=== PATIENT | female | born 1930 | race Caucasian/White ===

== ENCOUNTER 2018-04-23 11:54 | Observation (INO) | payer MEDICARE ==
[2018-04-23 12:47] LABS: Bilirubin Negative (Negative); Blood, Urine Negative (Negative); Clarity CLEAR (Clear); Glucose, Urine (Dipstick) Negative (Negative); Leukocyte Negative (Negative); Nitrite Negative (Negative); Protein, Urine (Dipstick) Trace mg/dL (Neg-Trace); Urobilinogen 0.2 mg/dL (0.2-1.0)
--- NOTE | 2018-04-23 12:49 | RAD ---
CHEST ONE VIEW: History: Cough, weakness. Comparison: 03-28-18 FINDINGS: Cardiac silhouette is magnified by projection. Pulmonary vasculature is unremarkable. Lungs remain hy perinflated. Fluid at the right base and mild right basilar atelectasis appears stable. No evidence o f pneumothorax. IMPRESSION: Right pleural fluid, pulmonary hyperinflation and other findings are stable. POS: [facility]
[2018-04-23 13:44] LABS: ALT (SGPT) 17 U/L (8-55); AST (SGOT) 30 U/L (5-34); Albumin 3.8 g/dL (3.4-4.8); Alkaline Phosphatase 87 U/L (40-150); Anion Gap 15 mmol/L (10-20); BUN (Urea Nitrogen) 36 mg/dL (9.8-20.1); Bilirubin, Total 1.1 mg/dL (0.2-1.2); CK (CPK) 65 U/L (29-168); Calc. Creatinine Clearance 0 mL/min (70-130); Calcium 9.5 mg/dL (7.8-10.44); Carbon Dioxide 23 mmol/L (23-31); Chloride 105 mmol/L (98-107); Estimated GFR-MDRD 70; Globulin 3.6 g/dL (2.4-3.5); Glucose 89 mg/dL (83-110); Lipase 50 U/L (8-78); Protein, Total 7.4 g/dL (6.0-8.3); Sodium 139 mmol/L (136-145)
[2018-04-23 14:34] LABS: #Eosinphils 0.1 thou/uL (0.0-0.7); #Lymphocytes 0.8 thou/uL (1.20-3.40); #Monocytes 0.6 thou/uL (0.11-0.59); #Neutrophils 4.5 thou/uL (1.40-6.50); %Basophils 0.1 % (0.0-1.0); %Lymphocytes 13.8 % (21.0-51.0); %Monocytes 9.3 % (0.0-10.0); %Neutrophils 75.7 % (42.0-75.0); Hemoglobin 14.5 g/dL (12.0-16.0); Mean Corpuscular HGB CONC 32.4 g/dL (32.0-36.0); Mean Corpuscular Hemoglobin 32.5 pg (27.0-31.0); Mean Platelet Volume 6.7 fL (7.4-10.4); Platelet Count 211 thou/uL (130-400); RBC Distribution Width 13.1 % (11.5-14.5); Red Blood Cell (RBC) Count 4.47 mill/uL (4.20-5.40)
--- NOTE | 2018-04-23 15:35 | PDOC.FPRHP ---
- History of Present Illness Chief Complaint: Weakness History of Present Illness: 87 yo female presents for evaluation of weakness and REYES. Patient's daughter is main historian. Reports her mother was not able to walk short distances earlier today. Reports extreme fatigue, REYES, pale, and diaphoretic (cold and calmy). Recently dx at PCP office with Blaire stewart. Was on her way to have diagnostic studies but was unable to go do to symptoms. Patient was unable to make it to the car. Currently lives at home by herself. Patient denies palpitations or heart racing. States "I was just really weak and didn't know what was going on. " Also notes she just doesn't remember all symptoms but mainly reports weakness. Weakness improved with rest. She denied headache, dizziness, vision change, sob, palpitation, pain to arm/neck or nausea. Once she arrived to ER notes chest pressure and headache. ED Course: Has received 500 ml saline, 324 asa prior to arrival. - Home Medications Comments: Propranolol 40 mg, 2 tab by mouth daily Eliquis 2.5 mg, 1 tab by mout BID - History PMHx: Blaire stewart, hypothyroidism, essential tremor, thasmotic dysphonia, bilateral cataracts PSHx: cataracts, delivery FHx: only child. raised by father. unsure but no medical conditions known in children Social: lives alone, denies tobacco, alcohol, or drug use - Review of Systems General: reports: other (Complain of clamminess). denies: fever/chills, weight/ appetite/sleep changes, night sweats Eyes: denies: eye pain, vision changes ENT: denies: nasal congestion, rhinorrhea Respiratory: denies: cough, congestion, shortness of breath Cardiovascular: denies: chest pain, palpitation, edema, paroxysmal nocturnal dyspnea Gastrointestinal: denies: nausea, vomiting, diarrhea, constipation Genitourinary: denies: incontinence, polyuria Skin: denies: rashes, itching Musculoskeletal: denies: pain, tenderness Neurological: denies: syncope, seizure Psychological: denies: anxiety, depression - Vital signs BP: [137/60] HR: [68] RR: [30] Tmax: [98] Pox: [96]% on [rA] Wt: [52 kg] - Physical Exam Constitutional: NAD, awake, alert and oriented, well developed HEENT: normocephalic and atraumatic, grossly normal vision, grossly normal hearing, normal nasal mucosa, MMM, oropharynx clear, good dention Neck: supple Chest: no-tender to palpation, no lesions Heart: RRR, normal S1/S2, no murmurs/rubs/gallops, no edema Lungs: CTAB, no respiratory distress, good air movement Abdomen: soft, non-tender, bowel sounds present Musculoskeletal: normal structure, ROM grossly normal Neurological: no focal deficit, CN II-XII intact, normal sensation Skin: no rash/lesions, no jaundice Heme/Lymphatic: no unusual bruising or bleeding, no purpura, no petechia Psychiatric: normal mood and affect, good judgment and insight, other (Mildly forgetful of recent event) FMR H&P: Results - Labs Result Diagrams: 04/23/18 14:29 04/23/18 12:31 Lab results: WBC 6.0 thou/uL (4.8-10.8) 04/23/18 14:29 Hgb 14.5 g/dL (12.0-16.0) 04/23/18 14:29 Hct 44.8 % (36.0-47.0) 04/23/18 14:29 MCV 100.0 fL (78.0-98.0) H 04/23/18 14:29 Plt Count 211 thou/uL (130-400) 04/23/18 14:29 Neutrophils % 75.7 % (42.0-75.0) H 04/23/18 14:29 Sodium 139 mmol/L (136-145) 04/23/18 12:31 Potassium 4.0 mmol/L (3.5-5.1) 04/23/18 12:31 Chloride 105 mmol/L (98-107) 04/23/18 12:31 Carbon Dioxide 23 mmol/L (23-31) 04/23/18 12:31 BUN 36 mg/dL (9.8-20.1) H 04/23/18 12:31 Creatinine 0.78 mg/dL (0.6-1.1) 04/23/18 12:31 Glucose 89 mg/dL (83-110) 04/23/18 12:31 Lactic Acid 1.4 mmol/L (0.5-2.2) 04/23/18 12:31 Calcium 9.5 mg/dL (7.8-10.44) 04/23/18 12:31 Total Bilirubin 1.1 mg/dL (0.2-1.2) 04/23/18 12:31 AST 30 U/L (5-34) 04/23/18 12:31 ALT 17 U/L (8-55) 04/23/18 12:31 Alkaline Phosphatase 87 U/L (40-150) 04/23/18 12:31 Creatine Kinase 65 U/L (29-168) 04/23/18 12:31 B-Natriuretic Peptide 415.2 pg/mL (0-100) H 04/23/18 12:31 Serum Total Protein 7.4 g/dL (6.0-8.3) 04/23/18 12:31 Albumin 3.8 g/dL (3.4-4.8) 04/23/18 12:31 Lipase 50 U/L (8-78) 04/23/18 12:31 Urine Ketones Negative mg/dL (Negative) 04/23/18 12:25 Urine Blood Negative (Negative) 04/23/18 12:25 Urine Nitrite Negative (Negative) 04/23/18 12:25 Ur Leukocyte Esterase Negative (Negative) 04/23/18 12:25 - EKG Interpretation EKG: No a fib seen. Appear to be NSR on electrotype servicer tracing. Has placed order for new EKG FMR H&P: A/P - Problem List (1) Weakness Current Visit: Yes Status: Acute Code(s): R53.1 - WEAKNESS Assessment and Plan: Multiple possible etiology. Consider new onset CHF with known afib history and elevated BNP. Consider afib but none noted on EKG and patient denies palpitation. Consider PE, but good oxygenationa nd no tachy or pain. Consider infectious cause but UA is clean and no fever Will get repeat trop, ekg, cxr. echo. Consult card. Treat as appropriate when lab/imaging returns. (2) HTN (hypertension) Current Visit: Yes Status: Acute Code(s): I10 - ESSENTIAL (PRIMARY) HYPERTENSION Assessment and Plan: Patient has history of HTN. Was on metoprolol. Will continue it. Will provide additional medication as needed for BP control. 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 She is on metoprolol for this. Will continue while here. (4) Subclinical hypothyroidism Current Visit: Yes Status: Chronic Code(s): E03.9 - HYPOTHYROIDISM, UNSPECIFIED Assessment and Plan: 9 month prior in PCP office, TSH was measured at 6.5 Can be considered normal in her age group Advise follow up as outpatient FMR H&P: Upper Level - Plan Date/Time: 04/23/181527 I, [], have evaluated this patient and agree with findings/plan as outlined by web design intern resident. Pertinent changes/additions are listed here. Addendum - Attending - Attending Attestation Date/Time: 04/23/181536 I personally evaluated the patient and discussed the management with Dr. Rahman I agree with the History, Examination, Assessment and Plan documented above with any addition or exceptions noted below. 87 yo female with recently diagnosed a. fib presents for evaluation of extreme weakness earlier today. Patient reports symptoms of weakness, paleness, cold/calmy, and REYES. This has been present x 1 day. Denies other symptoms at the time but reports chest heaviness and headache since arrival to ER. Arrived by EMS and unsure what medication provided at this time.
[2018-04-23] MEDS ORDERED: Acetaminophen 325 MG TAB PO PRN (19:15)
[2018-04-23] MEDS ORDERED: Ondansetron ODT 4 MG TAB PO PRN (19:15)
[2018-04-23 19:59] LABS: Thyroid Stimulating Hormone 4.7334 uIU/mL (0.35-4.94)
[2018-04-23 20:01] VITALS: BMI 15.5
--- NOTE | 2018-04-23 20:25 | RAD ---
TWO VIEWS CHEST: 04/23/18 HISTORY: Elevated BNP. PA and lateral views of the chest obtained on 04/23/18. Comparison made to previous exam from earlier in the day on 04/23/18. Two views chest demonstrate marked air trapping and changes of COPD. A small right sided pleural effu summer seen. Interstitial markings seen in the right lung base compatible with areas of lung fibrosis. IMPRESSION: Small right sided pleural effusions with air trapping and changes of COPD. No acute abnormality seen. POS: [facility]
--- NOTE | 2018-04-24 06:01 | PDOC.FM ---
- Subjective Subjective: NAEO. Patient denies any chest pain, SOB, or LE swelling on exam. Denies any lightheadedness on standing. Says she feels well. Only complaint is frequent urination. - Objective MAR Reviewed: Yes Vital Signs & Weight: Vital Signs (12 hours) Temp Pulse Resp BP Pulse Ox 04/24/18 03:44 98 F 76 22 H 145/65 H 97 04/23/18 23:44 79 141/63 H 04/23/18 19:06 97.7 F 87 16 167/80 H 98 Weight Weight 42.366 kg I&O: 04/22/18 04/23/18 04/24/18 06:59 06:59 06:59 Intake Total 120 Output Total 350 Balance -230 Result Diagrams: 04/23/18 14:29 04/24/18 04:58 Phys Exam - Physical Examination Constitutional: NAD HEENT: sclera anicteric, TM's clear Neck: supple, full ROM Respiratory: no wheezing, no rales, no rhonchi, clear to auscultation bilateral Cardiovascular: RRR, no significant murmur Gastrointestinal: positive bowel sounds Musculoskeletal: no edema, pulses present Neurological: non-focal, moves all 4 limbs Psychiatric: normal affect, A&O x 3 Skin: no rash, normal turgor Dx/Plan (1) Weakness Code(s): R53.1 - WEAKNESS Status: Acute (2) Atrial fibrillation Code(s): I48.91 - UNSPECIFIED ATRIAL FIBRILLATION Status: Chronic (3) HTN (hypertension) Code(s): I10 - ESSENTIAL (PRIMARY) HYPERTENSION Status: Chronic (4) 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 - High possibility of new onset CHF with known afib history and elevated BNP on admission. - troponins negative x 3, EKG showed no a fib, and no leukocytosis of fever suggestive of an infection. Also satting well on RA making a PE less likely. CXR also just showed a small R-sided effusion and COPD changes. - Cardiology consulted yesterday, appreciate recs. Echo pending for today. - Will continue CARL lasix 20mg BID today. Atrial Fibrillation: - Per patient and daughter was recently diagnosed by PCP. - Will continue home meds. HTN: - Aware, will continue home meds & provide additional medication PRN for better BP control. Spasmodic dysphonia: - Aware, will continue home meds. Subclinical hypothyroidism - Per history this was diagnosed 9 month ago in her PCP's office. TSH was measured at 6.5. - TSH WNLs on admission. - Will need to continue to follow as an outpatient. Diet: HH Abx: none IVFs: SL DVT PPx: [facility] PPx: none Dispo: Pending cardiology recs & echo results anticipate possibly d/c later today or tomorrow if WNLs.
[2018-04-24 06:07] LABS: Anion Gap 10 mmol/L (10-20); BUN (Urea Nitrogen) 44 mg/dL (9.8-20.1); Calc. Creatinine Clearance 38 mL/min (70-130); Calcium 9.3 mg/dL (7.8-10.44); Carbon Dioxide 25 mmol/L (23-31); Chloride 110 mmol/L (98-107); Estimated GFR-MDRD 79; Glucose 97 mg/dL (83-110); Potassium 4.1 mmol/L (3.5-5.1); Sodium 141 mmol/L (136-145)
[2018-04-24] MEDS ORDERED: Furosemide 20 MG/2 ML VIAL SLOW IVP SCH (07:00)
[2018-04-24] MEDS ORDERED: Apixaban 2.5 MG TAB PO SCH (09:00)
[2018-04-24] MEDS ORDERED: Enoxaparin Sodium 40 MG/0.4 ML SYRINGE SC SCH (09:00)
--- NOTE | 2018-04-24 11:55 | PRG ---
DATE OF SERVICE: 04/24/2018 SUBJECTIVE: Ms. Burgos is a pleasant 87-year-old white female who was admitted for shortness of breath and weakness. Her tentative diagnosis is heart failure and history of atrial fibrillation. She currently feels better after some Lasix and we are awaiting input from Cardiology regarding her heart failure. OBJECTIVE: VITAL SIGNS: Current vital signs are stable. Blood pressure is slightly elevated at 161/78. She is afebrile. LABORATORY DATA: Hemoglobin 14.5, white count 6000. Her chemistries are normal with a BUN of 44, creatinine of 0.7. Her BNP was very slightly elevated at 415.2. Her troponins so far are negative. Job ID: [id number]
[2018-04-24] MEDS: Furosemide 20 MG/2 ML VIAL SLOW IVP SCH (13:33)
[2018-04-24] MEDS ORDERED: Propranolol 40 MG TAB PO SCH (21:00)
--- NOTE | 2018-04-24 21:23 | CON ---
DATE OF CONSULTATION: 04/24/2018 HISTORY OF PRESENT ILLNESS: This is a sweet 87-year-old female with a past medical history of paroxysmal AFib and hypothyroidism, essential tremor who presents with weakness and dyspnea on exertion. She was recently seen by Dr. Romero as a referral from [facility] for atrial fibrillation with RVR. At that time, at [facility] there was also a 1-mm ST depression in leads 2 , 3 and aVF. After being seen by Dr. Romero, he recommended an echo and a cardiac stress test that was on April 22, 2018. Then yesterday her daughter went over to visit her mom, which is the patient who yesterday morning was feeling very short of breath. She was having shallow breathing. She was very weak and the daughter decided to take her to the ER; however the patient cannot even walk to her car. EMS was then called, after that she was transported via EMS. She did endorse some pressure in her chest, but denied all other symptoms besides dyspnea. She denied radiation of any chest pain. She denied nausea, vomiting or diaphoresis, jaw pain. When I saw her, she currently denied any shortness of breath and was resting comfortably in bed. She when I saw her was not requiring any oxygen. She was admitted yesterday for weakness of unknown etiology. PAST MEDICAL HISTORY: 1. Paroxysmal AFib. 2. History of ST depression during her recent atrial fibrillation with RVR episode at her PCP's office. 3. Benign essential tremor. 4. Dysphonia. PAST SURGICAL HISTORY: Hysterectomy. FAMILY HISTORY: Parents . Has 2 sons and 2 daughters. SOCIAL HISTORY: Denies tobacco, alcohol or drug use. ALLERGIES: NO KNOWN ALLERGIES. REVIEW OF SYSTEMS: GENERAL: Denied fevers or chills. ENT: Denied nasal congestion, sore throat. RESPIRATORY: Endorsed shortness of breath on admission. Denied it currently. Denied cough. CARDIAC: Denied chest pain. Denied edema. ABDOMEN: Denied, nausea, vomiting, diarrhea. PHYSICAL EXAMINATION: VITAL SIGNS: Temperature 97.9, pulse 82, respiratory rate 16, oxygen saturation 98 on room air. Blood pressure 134/62. GENERAL: No apparent distress. Thin and frail. HEENT: Normocephalic, atraumatic. HEART: Regular rate and rhythm. Normal S1, S2. No murmurs, rubs or gallops. LUNGS: Clear to auscultation bilaterally. No respiratory distress. ABDOMEN: Soft, nontender. Bowel sounds present. PSYCHIATRIC: Euthymic mood, seems confused. Cannot answer questions regarding her history. LABORATORY DATA: BUN 44, but creatinine was normal at 0.7, and chloride was elevated at 110, otherwise BMP was normal. BNP was 415, which was elevated. TSH was 4.7, procalcitonin was 0.45. Urine was negative for any infection. IMAGING: Chest x-ray, cardiac silhouette is magnified. Pulmonary vasculature is unremarkable. Lungs are hyperinflated. There is fluid at the right base and mild right basilar atelectasis, but it appears stable to prior study. No evidence of pneumothorax. Repeat chest x-ray, small right-sided pleural effusion with air trapping and changes with COPD. No acute abnormalities seen. EKG shows sinus rhythm with PACs. ASSESSMENT AND PLAN: This is an 87-year-old female with past medical history of paroxysmal atrial fibrillation with ST depression admitted for weakness of unknown etiology. 1.Paroxysmal atrial fibrillation with ST-segment depression. These were found in clinic at [facility]. She was referred to Cardiology who saw her on April 22, 2018, who recommended an echo and stress test at that time. She then subsequently became short of breath and was admitted to the hospital for weakness. From a cardiology standpoint, we recommend an echo and a stress test to evaluate for significant coronary artery disease and heart failure. It was also recommended in the cardiology clinic that she start Eliquis 2.5 mg b.i.d. for stroke prophylaxis. We again recommend a cardiac stress test here inpatient due to the ST segment depression found in the [facility] clinic. This is Elham Godwin who saw and evaluated the patient with Dr. Arellano, who agrees with the assessment and plan. Job ID: [id number] [email or web address]
--- NOTE | 2018-04-25 06:20 | PDOC.FM ---
- Subjective Subjective: NAEO. Patient denies any chest pain, SOB, cough, or palpitations on exam this AM. - Objective MAR Reviewed: Yes Vital Signs & Weight: Vital Signs (12 hours) Temp Pulse Resp BP Pulse Ox 04/25/18 04:03 97.5 F L 60 16 130/63 99 04/25/18 00:00 97.3 F L 65 17 132/77 95 04/24/18 20:00 98 F 88 18 137/61 96 Weight Admit Weight 42.366 kg Weight 38.737 kg I&O: 04/23/18 04/24/18 04/25/18 06:59 06:59 06:59 Intake Total 120 720 Output Total 350 1150 Balance -230 -430 Result Diagrams: 04/23/18 14:29 04/25/18 06:46 Radiology: ECHO: EF 60-65% w/ no LV dysfunction Phys Exam - Physical Examination Constitutional: NAD in and out of consciousness during exam but just woken up from sleep HEENT: moist MMs, sclera anicteric Neck: supple, full ROM Respiratory: no wheezing, no rales, no rhonchi, clear to auscultation bilateral Cardiovascular: RRR, no significant murmur Gastrointestinal: positive bowel sounds Musculoskeletal: no edema, pulses present Neurological: non-focal, moves all 4 limbs Skin: no rash Deviation from normal: decreased turgor w/ frail, dry skin Dx/Plan (1) Weakness Code(s): R53.1 - WEAKNESS Status: Acute (2) Atrial fibrillation Code(s): I48.91 - UNSPECIFIED ATRIAL FIBRILLATION Status: Chronic (3) HTN (hypertension) Code(s): I10 - ESSENTIAL (PRIMARY) HYPERTENSION Status: Chronic (4) 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 CAD/ACS vs. atrial fibrillation: - Multiple possible etiologies. However ECHO obtained yesterday showed no signs of CHF with an EF estiamted at 60-65% and normal LV size and function noted. - troponins negative x 3, EKG showed no a fib & no a fib noted since admission. Still no fever tachycardia suggestive of an infection. Also continue to sat well on RA making a PE less likely. - Cardiology consulted yesterday & recommended a stress test today. Patient NPO in anticipation of this. - Will hold CARL lasix 20mg BID today as patient appears stable and no CHF detected on ECHO. Atrial Fibrillation: - Per patient and daughter was recently diagnosed by PCP. - Will resume Eliquis 2.5mg BID as recommended by cards. HTN: - Aware, will continue home meds after stress. Spasmodic dysphonia: - Aware, will continue home meds after stress. Subclinical hypothyroidism - Per history this was diagnosed 9 month ago in her PCP's office. TSH was measured at 6.5. - TSH WNLs on admission. - Will need to continue to follow as an outpatient. Diet: NPO, meds with sips Abx: none IVFs: SL DVT PPx: Eliquis GI PPx: none Dispo: Stress test this morning with likely d/c later today if WNLs.
[2018-04-25] MEDS: Furosemide 20 MG/2 ML VIAL SLOW IVP SCH (06:35)
[2018-04-25 07:27] LABS: Anion Gap 14 mmol/L (10-20); BUN (Urea Nitrogen) 53 mg/dL (9.8-20.1); Calc. Creatinine Clearance 31 mL/min (70-130); Calcium 9.8 mg/dL (7.8-10.44); Carbon Dioxide 27 mmol/L (23-31); Chloride 104 mmol/L (98-107); Estimated GFR-MDRD 69; Glucose 97 mg/dL (83-110); Potassium 3.8 mmol/L (3.5-5.1); Sodium 141 mmol/L (136-145)
--- NOTE | 2018-04-25 08:43 | CON ---
DATE OF CONSULTATION: 04/24/2018 ADDENDUM: INDICATION FOR CONSULTATION: An 87-year-old female with intermittent atrial fibrillation. HISTORY OF PRESENT ILLNESS: Please refer to the notes that were dictated by the family practice resident, but this is a very pleasant 87-year-old female who still lives alone. The family lives across [address]. She was seen by Dr. Romero 2 days ago in the office after she was found to have an abnormal EKG in the physician's office and was found to have atrial fibrillation. She apparently continues to have some atrial fibrillation with rapid ventricular response up to 136 beats per minute. She since being in the hospital here appears to be in sinus rhythm with PACs. When she was seen in the office, I believe she also was having some sinus rhythm with PACs. She did have an EKG, which showed some abnormal ST-segment changes in the inferior leads. She denied any significant palpitations herself or chest pain or significant shortness of breath. She was brought in this time due to some shortness of breath, but overall generalized fatigue and the family brought her in to be further evaluated. The daughter tells me she had been on thyroid medicine in the past, but she no longer takes it, but evaluation of the thyroid function indicates that her TSH was 4.7. Her cardiac enzymes are negative. Her BNP was slightly elevated at 4.15. Otherwise, laboratory data was not significantly abnormal. Her hemoglobin was 14.5. Her renal function also remained normal. She appears to be somewhat dehydrated with a BUN creatinine ratio of almost 60:1. Her BUN was 44. The creatinine is 0.7. There is no indication that she has infection, just generalized weakness. She actually was almost unable to walk to the car according to the family and 911 was called and she was brought to the emergency room. PAST MEDICAL HISTORY: Please refer to the notes already dictated. SOCIAL HISTORY: Please refer to the notes already dictated. REVIEW OF SYSTEMS: Please refer to the notes already dictated. MEDICATIONS: Please refer to the notes already dictated. ALLERGIES: PLEASE REFER TO THE NOTES ALREADY DICTATED. PHYSICAL EXAMINATION: GENERAL: Reveals an elderly female, who is in no acute distress. She is alert. She is oriented. VITAL SIGNS: Her blood pressure is 134/62. She is afebrile. Heart rate is 82 and shows frequent PACs, respiratory rate 16, and O2 saturation 98%. HEENT: Shows head to be normocephalic and atraumatic. NECK: Carotid pulses are present. I did not hear any bruits. CHEST: Actually clear to auscultation without rales, rhonchi, or wheezing. CARDIOVASCULAR: Reveals an irregular rhythm. I do not hear any harsh murmurs. She has a very soft systolic murmur at the apex. Otherwise, there were no significant murmurs, heaves, thrills, bruits, or rubs. ABDOMEN: Soft and nontender with positive bowel sounds. EXTREMITIES: No clubbing, cyanosis, or edema. Pedal pulses are difficult to palpate. NEUROLOGIC: She has generalized weakness. Otherwise, there were no significant focal motor deficits noted. IMAGING STUDIES: Her EKG shows a sinus rhythm with frequent PACs. It at times shows a sinus rhythm with normal heart rate. IMPRESSION: 1. Generalized weakness in an elderly female with deconditioning of uncertain etiology. This will be dealt with by the primary care service. They have evaluated her thyroid function. This appears to be relatively normal. This may need further evaluation, however. 2. Intermittent atrial fibrillation. She has been on propranolol 40 mg b.i.d. I will switch this to 20 mg t.i.d. She may need other antiarrhythmic medications. We will obtain an echocardiogram as well as stress testing in this lady as she did have some EKG changes previously when she had a rapid heart rate associated with atrial fibrillation. 3. Increased age and deconditioning. She may need to have some physical therapy. Otherwise, at this time, we will continue to evaluate her for possible cardiac etiologies of her fatigue. Already, Dr. Romero had started her on Eliquis 2 days ago and she has no history of falls. We will continue this medications. Job ID: [id number]
[2018-04-25] MEDS ORDERED: Apixaban 2.5 MG TAB PO SCH ×2 (09:00)
[2018-04-25] MEDS ORDERED: Enoxaparin Sodium 40 MG/0.4 ML SYRINGE SC SCH (09:00)
--- NOTE | 2018-04-25 11:27 | PRG ---
DATE OF SERVICE: 04/25/2018 Ms. Burgos is doing well. Has been seen in consultation by the Cardiology Service. We will await the results of her stress Myoview and proceed according to recommendations of Cardiology. Job ID: [id number]
[2018-04-25] MEDS ORDERED: Propranolol HCl 20 MG TAB PO SCH (15:00)
[2018-04-25] MEDS ORDERED: Propranolol 40 MG TAB PO SCH (15:00)
--- NOTE | 2018-04-25 15:00 | NM ---
RADIONUCLIDE STRESS AND REST MYOCARDIAL PERFUSION SCAN WITH CT ATTENUATION CORRECTION AND SPECT IMAGI NG WITH LEFT VENTRICULAR WALL MOTION EVALUATION AND EJECTION FRACTION: HISTORY: Chest pain. Dyspnea. FINDINGS: Lexiscan protocol. There is homogeneous uptake of radiotracer throughout the left ventricular myocardium on the stress a nd rest images. No focal perfusion defect or reversibility. QGS analysis of gated SPECT images shows no focal wall motion abnormalities. Ejection fraction calcul ated at 82%. IMPRESSION: 1. Normal myocardial perfusion scan. 2. Normal LVEF. POS: [facility]
[2018-04-25] MEDS ORDERED: Regadenoson 0.4 MG/5 ML SYRINGE ONE (16:20)
[2018-04-25 16:27] VITALS: BP 111/58; TEMP 98
--- NOTE | 2018-04-26 11:19 | DIS ---
DATE OF ADMISSION: 04/23/2018 DATE OF DISCHARGE: 04/25/2018 RESIDENT: Sonali Costa MD ADMITTING ATTENDING: Rula Saravia MD DISCHARGE ATTENDING: Rula Saravia MD. CONSULT: Cardiology, Dr. Becca Arellano. PROCEDURES: 1. Chest x-ray on 04/23/2018, which showed small right-sided pleural effusions with air trapping and changes with COPD with no acute abnormality seen. 2. Nuclear stress test on 04/25/2018, which showed normal myocardial perfusion scan with a normal left ventricular ejection fraction. PRIMARY DIAGNOSES: Weakness secondary to paroxysmal atrial fibrillation versus deconditioning secondary to advanced age. SECONDARY DIAGNOSES: 1. Paroxysmal atrial fibrillation. 2. Hypertension. 3. Spasmodic dysphonia. 4. Subclinical hypothyroidism. DISCHARGE MEDICATIONS: 1. Acetaminophen 650 mg p.o. every 4 hours p.r.n. 2. Propranolol 20 mg p.o. t.i.d. 3. Eliquis 2.5 mg p.o. b.i.d. DISCONTINUED MEDICATIONS: Propranolol 40 mg p.o. b.i.d. HOSPITAL COURSE: The patient is an 87-year-old female with past medical history significant for paroxysmal atrial fibrillation, recently diagnosed at her PCP's office on EKG, who presented to the emergency department with a chief complaint of weakness and dyspnea on exertion that began earlier on the day of presentation. On presentation to the emergency department, the patient's vitals were noted to be within normal limits with the exception of irregular heart rate being approximately 95 times a minute. Chest x-ray was obtained which showed a small right-sided pleural effusion, but was otherwise within normal limits. Routine lab work including CBC, CMP, troponin, lactate, and BMP were all drawn and all noted to be within normal limits with the exception of an elevated BNP of 415.2. The patient's TSH and procalcitonin levels were also noted to be within normal limits. Lastly, urinalysis was obtained which was negative for any evidence of infection. Thus, due to her elevated BNP, the patient was admitted to telemetry for close observation overnight and started on 20 mg of IV Lasix b.i.d. for presumed acute CHF exacerbation. Of note, the patient was actually scheduled to see Dr. Romero in clinic on the date of presentation and the next day for an outpatient echocardiogram and nuclear stress test. Therefore, Cardiology, Dr. Becca Arellano, was consulted the next day to come and evaluate the patient for any further recommendations. By that time, the patient's echocardiogram had been obtained, which noted a preserved EF of 60% to 65% with no noted diastolic or systolic dysfunction. Dr. Arellano came and evaluated the patient later that afternoon and recommended increasing the patient's home propranolol dose to 20 mg t.i.d. and starting the patient on Eliquis 2.5 b.i.d. for her paroxysmal atrial fibrillation. She also recommended proceeding with a nuclear stress test as planned by Dr. Romero prior to presentation. The patient was therefore diuresed over the course of her second day of hospitalization and made n.p.o. after midnight in anticipation of a stress test the following morning. On the morning of discharge, the patient underwent a nuclear stress test, which was noted to show normal myocardial perfusion and normal left ventricular ejection fraction. The patient was therefore cleared for discharge home with close followup with Cardiology and her primary care physician, Dr. Carlos Gonzalez. DISPOSITION: Stable. DISCHARGE INSTRUCTIONS: 1. Location: Home. 2. Diet: Heart healthy diet. 3. Activity: As tolerated, no restrictions. 4. Followup: The patient was instructed to follow up with her primary care provider, Dr. Carlos Gonzalez, within 1 week of discharge. She was also instructed to follow up with her [employer] senior officer, Dr. Jignesh Romero, within 3 to 4 weeks of discharge. Job ID: [id number]
--- NOTE | 2018-04-28 14:19 | STRESS ---
Acquisition Time: 2018-04-25 12:25:27 Total Exercise Time: 00:01:00 Test Indications: SHORTNESS OF BREATH Medications: Protocol: LEXISCAN Max HR: 104 BPM 78% of Pred: 133 BPM Max BP: 122/070 mmHG Max Work Load: 1.0 METS RESTING ECG: NORMAL SINUS RHYTHM AT 85 BPM SYMPTOMS: NAUSEA, DIZZY NORMAL BLOOD PRESSURE RESPONSE ECTOPY: OCCASIONAL PACs ECG RESPONSE: NO SIGNIFICANT CHANGES INTERPRETATION: AWAIT NUCLEAR IMAGES FOR DEFINITIVE DIAGNOSIS Confirmed by MINOO MADISON ([id number]), newspaper editor DIONTE ZIMMERMAN ([id number]) on 04/28/2018 2:18:39 PM Referred By: MD Candy GAYTAN Confirmed By:MINOO MADISON
== END 2018-04-25 16:45 | disposition home or self-care (01) ==
LOC: ERS 11:54 → 2SW 15:03
PROVIDERS: ADMIT Student in an Organized Health Care Education/Training Program; ATTEND Student in an Organized Health Care Education/Training Program
DX: R53.1 Weakness (principal); I48.0 Paroxysmal atrial fibrillation; J38.3 Other diseases of vocal cords; E02 Subclinical iodine-deficiency hypothyroidism; I10 Essential (primary) hypertension; Z98.41 Cataract extraction status, right eye; Z98.42 Cataract extraction status, left eye; Z90.710 Acquired absence of both cervix and uterus; Z91.018 Allergy to other foods; Z91.011 Allergy to milk products; Z79.01 Long term (current) use of anticoagulants; Z79.899 Other long term (current) drug therapy; Z98.890 Other specified postprocedural states
CPT/HCPCS: 71045; 71046; 78452; 80048 ×2; 81003; 82550; 83605; 83690; 83880; 84145; 84484 ×2; 93005; 93017; 93306; 96372; 96374; 96375; 96376; 99285; A9500; G0378 ×2; 36415; 80053; 84443; 85025; J1650; J1940; J2785

== ENCOUNTER 2018-06-02 08:59 | Outpatient (CLI) | payer MEDICARE ==
[~2018-06-02 08:59] MED LIST: Iopamidol 370 76% 100 ML VIAL ONE
--- NOTE | 2018-06-02 11:19 | CT ---
HEAD CT WITH AND WITHOUT CONTRAST: INDICATIONS: Memory loss. COMPARISON: Reference made to a 08/06/2014 examination. FINDINGS: There is age-related parenchymal volume loss. Mild chronic ischemic disease is present. The ventric ular system is appropriate in size for the patient's age. There is no pathologic intraaxial enhancem ent. The imaged paranasal sinuses and clear. IMPRESSION: 1. No acute intracranial hemorrhage or mass effect. 2. Parenchymal volume loss and mild chronic ischemic disease. POS: ROSE MARIE
== END 2018-06-02 09:00 | disposition home or self-care (01) ==
LOC: CT 08:59
PROVIDERS: ATTEND Family Medicine
DX: R41.3 Other amnesia (principal); I67.82 Cerebral ischemia; G93.89 Other specified disorders of brain
CPT/HCPCS: 70470; 82565; Q9967

== ENCOUNTER 2018-06-06 13:12 | Outpatient (CLI) | payer MEDICARE ==
--- NOTE | 2018-06-06 15:46 | ULT ---
BILATERAL CAROTID DUPLEX ULTRASOUND: HISTORY: Memory loss. TECHNIQUE: Cortez-scale ultrasound with color-flow and spectral Doppler imaging of the extracranial carotid artery systems is performed bilaterally. FINDINGS: No significant plaque formation or intimal wall thickening is seen on either side. The peak systolic velocity in the right ICA measures 65 cm per second with an end-diastolic velocity of 18 cm per second and a systolic ratio of 0.97. The peak systolic velocity in the left ICA measures 75 cm per second with an end-diastolic velocity o f 15 cm per second and a systolic ratio of 1.23. Flow in both vertebral arteries remains antegrade. IMPRESSION: No evidence of hemodynamically significant stenosis in either internal carotid artery. POS: C
== END 2018-06-06 13:13 | disposition home or self-care (01) ==
LOC: BICULT 13:12
PROVIDERS: ATTEND Family Medicine
DX: I67.82 Cerebral ischemia (principal); R41.3 Other amnesia; R94.31 Abnormal electrocardiogram [ECG] [EKG]
CPT/HCPCS: 93880